=== PATIENT | female | born 1995 | race Caucasian/White ===

== ENCOUNTER 2017-12-15 16:26 | Emergency (ER) | payer OTHER ==
[~2017-12-15] VITALS: Ht 157.5 cm; Wt 63.5 kg
[2017-12-15 17:05] VITALS: BP 111/73
--- NOTE | 2017-12-16 13:20 | EKG ---
[place] [address] ELECTROCARDIOGRAM REPORT Name: MONSE DAVIDSON Room: [facility]#: [id number] Admission: 12/15/17 Attend Phys: Discharge: 12/15/17 Date of : [birth year] Report #: [id number] THIS REPORT FOR: //name// [facility] ED Test Date: 2017-12-15 Test Time: 16:36:22 Pat Name: MONSE DAVIDSON Department: Room: Gender: F Gm/[employer] Business: [place] : 1995 Requested By: Christos Medley Order Number: [id number] MD: Gavino Pickett Measurements Intervals [place] Rate: 63 P: 73 WV: 240 QRS: 11 QRSD: 100 T: -1 QT: 382 QTc: 392 Interpretive Statements Sinus rhythm Prolonged [place] interval Borderline T abnormalities, diffuse leads No previous ECG available for comparison Electronically Signed On 12-16-2017 13:20:07 CDT by Gavino Pickett [email or web address] <ELECTRONICALLY SIGNED> By: Gavino Pickett MD, [facility] 12/16/17 1320 D: [id number] Gavino Pickett MD, FACC /EPI
== END 2017-12-15 17:06 | disposition home or self-care (01) ==
LOC: M.ERS 16:26
DX: R20.9 Unspecified disturbances of skin sensation (principal); F20.9 Schizophrenia, unspecified; J45.909 Unspecified asthma, uncomplicated; W86.0XXA Exposure to domestic wiring and appliances, initial encounter; Y93.E9 Activity, other interior property and clothing maintenance; Y92.89 Other specified places as the place of occurrence of the external cause; Y99.8 Other external cause status

== ENCOUNTER 2019-07-27 16:30 | Emergency (ER) | payer OTHER ==
[~2019-07-27] VITALS: Ht 157.5 cm; Wt 65.8 kg
[2019-07-27 16:39] VITALS: BP 131/95
== END 2019-07-27 17:10 | disposition home or self-care (01) ==
LOC: M.ERS 16:30
DX: R22.9 Localized swelling, mass and lump, unspecified (principal); J45.909 Unspecified asthma, uncomplicated; F20.9 Schizophrenia, unspecified